=== PATIENT | female | born 1980 | race African-American/Black ===

== ENCOUNTER 2019-03-18 10:37 | Emergency (ER) | payer SELFPAY | END 2019-03-18 11:32 | disposition home or self-care (01) | LOC: ERS 10:37 | DX: J11.1 Influenza due to unidentified influenza virus with other respiratory manifestations (principal); F31.9 Bipolar disorder, unspecified; F41.9 Anxiety disorder, unspecified; F20.9 Schizophrenia, unspecified; F43.10 Post-traumatic stress disorder, unspecified; Z79.899 Other long term (current) drug therapy | CPT/HCPCS: 99283 ==